=== PATIENT | male | born 1940 | race Caucasian/White ===

== ENCOUNTER 2017-01-02 17:59 | Observation (INO) | payer MEDICARE, OTHER ==
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
[2017-01-02 19:16] LABS: Hematocrit 37.5 % (42.0-52.0); Hemoglobin 12.6 gm/dL (13.5-18.0); Mean Cell Volume 91.5 fl (78-100); Mean Corpuscular Hemoglobin 30.7 pg (27-31); Mean Corpuscular Hgb Conc 33.6 g/dl (32-36); Mean Platelet Volume 9.3 fl (6.0-9.5); Neutrophil # 5.5 K/mm3 (1.3-6.0); Neutrophil % 71.1 % (42-75.0); Platelet Count 311 K/mm3 (150-450); White Blood Count 7.7 K/mm3 (4.0-10.5)
[2017-01-02 19:30] LABS: Albumin * 2.7 gm/dl (3.4-5.0); Anion Gap 12.7 mmol/L (6.8-13.8); BUN/Creatinine Ratio 22.5 (9.0-21.6); Bilirubin, Total 0.3 mg/dL (0.0-1.1); Ca. Corrected For Albumin 8.9 mg/dL (8.4-10.2); Calcium * 8.2 mg/dL (7.9-10.9); Carbon Dioxide 27.7 mmol/L (24-32.6); Potassium 4.4 mmol/L (3.4-4.6)
[2017-01-02 20:29] LABS: Urine Bilirubin Negative (NEGATIVE); Urine Blood Negative /ul (NEGATIVE); Urine Ketone Negative (NEGATIVE); Urine Nitrite Negative (NEGATIVE); Urine Protein Negative (NEGATIVE); Urine Urobilinogen Normal (NORMAL)
[2017-01-02 20:41] LABS: Urine Appearance Clear; Urine Bacteria 3+; Urine Color Yellow; Urine RBC None Seen /hpf (0-5); Urine WBC 0-5 /hpf (0-5)
--- NOTE | 2017-01-02 22:34 | HP ---
<Durga Man - Last Filed: 01/03/17 02:24> Chief Complaint - Chief Complaint Date of Service: 01/02/17 Time of Service: 22:14 Chief Complaint: Falls, parkinson History of Present Illness: 76 years old male adm to the hospital from ER, with reports of frequent falls, decreased mental status, non-compliance to medication regimen and requesting placement. Patient was seen briefly in ER before adm to the hospital.Pt is nonverbal and information is obtained from (POA). stated she no longer can care for patient alone at home. He fights and refuses to take his medications, impulsive getting up unassisted and falling. Pt had not been seen in years by PCP who had since retired.He has a non-infected pressure ulcer to the sacrum, is unable to frequently change his position due to strain on her back.This past week he had two falls leaving him with multiple areas of bruising. He has not been eating well and she has to force him to eat. Adm for social issue and possible placement to [facility]. In ER urinalysis negative, CT cervical spine: No acute fracture. multilevel cervical spondylosis. CT head: No acte facial bone fracture. mild soft tissue swellings in the left periorbital region with no retrobulbar hematoma - Patient's Past Medical History Patient History - Medical: Other - Parkinson's disease, possible dementia Patient History - Cardiac/Respiratory: No pertinent hx Patient History - Cancer: No Hx of Cancer Patient History - Surgical Procedures: Noncontributory, Appendectomy Patient History - Other: None - Family History Mother Family History - Medical: History Unknown Family History - Cardiac/Respiratory: History Unknown Family History - Cancer: History Unknown Father Family History - Medical: History Unknown Family History - Cardiac/Respiratory: History Unknown Family History - Cancer: History Unknown - Social History Living Situations: home Abuse History: No History of abuse Psych History: No pertinent hx Smoking Status: Former smoker Alcohol Use: none Drug Use: none - Immunizations Immunizations Up to Date: No Review Of Systems (GEN) - Review of Systems Generalized/Overall Review: Present: Weakness EENTM: Present: No Symptoms Reported Respiratory: Present: No Symptoms Reported Cardiac: Present: No Symptoms Reported Abdominal: Present: No Symptoms Reported Genitourinary: Present: Urgency Musculoskeletal: Present: Other - unsteady gait Neurological: Present: Tremors, Weakness Skin: Present: Bruising - multiple areas of bruising, pressure ulcer to sacrum Endocrine: Present: No Symptoms Reported Allergies/Adverse Reactions: Allergies Allergy/AdvReac Type Severity Reaction Status Date / Time No Known Allergies Allergy Verified 01/02/17 23:28 Home Medications: HOME MEDICATIONS Carbidopa/Levodopa 25/100 [Sinemet 25/100] 1 tab PO QID 01/02/17 [Last Taken Unknown] Exam - Exam Vital Signs: Vital Signs - Last Taken Temp 36.5 C 01/02/17 18:00 Pulse 76 01/02/17 21:35 Resp 18 01/02/17 21:35 BP 127/79 01/02/17 21:35 Pulse Ox 100 01/02/17 21:35 Constitutional: Present: No distress, Elderly, Looks Older than stated age ENT Exam: Present: moist mucous membranes, other - Right eye orbit swelling Eye Exam: bilateral eye: PERRL Neck: Present: full range of motion Back Exam: Present: normal inspection Breasts: Present: Exam deferred Respiratory: Present: chest non-tender, normal breath sounds, no respiratory distress Cardiovascular/Chest: Present: normal peripheral pulses, regular rate, rhythm, no chest tenderness, no edema Peripheral Pulses: dorsalis-pedis (R): 3+, dorsalis-pedis (L): 3+ Abdomen: Present: Normal bowel sounds, soft, nontender, nondistended, no rebound tenderness /Rectal: Present: Exam deferred Extremity: Present: normal range of motion, normal capillary refill Skin Exam: Present: other - areas of multiple bruising Neurologic: Present: abnormal gait, motor weakness, disoriented x 3 Appearance: Present: other - parkinson Eye contact: Present: good eye contact Thoughts: Present: other - flat affect Diagnostic Studies: Laboratory Results WBC 7.7 K/mm3 (4.0-10.5) 01/02/17 19:10 RBC 4.10 M/mm3 (4.7-6.0) L 01/02/17 19:10 Hgb 12.6 gm/dL (13.5-18.0) L 01/02/17 19:10 Hct 37.5 % (42.0-52.0) L 01/02/17 19:10 MCV 91.5 fl (78-100) 01/02/17 19:10 MCH 30.7 pg (27-31) 01/02/17 19:10 MCHC 33.6 g/dl (32-36) 01/02/17 19:10 RDW 14.0 % (11.5-14.0) 01/02/17 19:10 Plt Count 311 K/mm3 (150-450) 01/02/17 19:10 MPV 9.3 fl (6.0-9.5) 01/02/17 19:10 Immature Gran % (Auto) 0.50 % (0.001-0.429) H 01/02/17 19:10 Immature Gran # (Auto) 0.04 K/mm3 (0.000-0.0310) H 01/02/17 19:10 Neutrophils % 71.1 % (42-75.0) 01/02/17 19:10 Lymphocytes % 18.9 % (20-51) L 01/02/17 19:10 Monocytes % 7.7 % (0.0-9) 01/02/17 19:10 Eosinophils % 1.2 % (0.0-3.0) 01/02/17 19:10 Basophils % 0.6 % (0.0-1.0) 01/02/17 19:10 Nucleated RBC % 0.0 k/mm3 (0-1) 01/02/17 19:10 Neutrophils # 5.5 K/mm3 (1.3-6.0) 01/02/17 19:10 Lymphocytes # 1.5 k/mm3 (1.5-3.5) 01/02/17 19:10 Monocytes # 0.6 k/mm3 (0.0-1.0) 01/02/17 19:10 Eosinophils # 0.1 k/mm3 (0.0-0.7) 01/02/17 19:10 Absolute Basophils 0.1 k/mm3 (0.0-0.1) 01/02/17 19:10 Sodium 141 mmol/L (132-142) 01/02/17 19:10 Plasma Sodium 141 mmol/L (130-142) 01/02/17 19:10 Potassium 4.4 mmol/L (3.4-4.6) 01/02/17 19:10 Chloride 105 mmol/L (97-106) 01/02/17 19:10 Carbon Dioxide 27.7 mmol/L (24-32.6) 01/02/17 19:10 Anion Gap 12.7 mmol/L (6.8-13.8) 01/02/17 19:10 BUN 16 mg/dL (6-23) 01/02/17 19:10 Creatinine 0.71 mg/dL (0.4-1.4) 01/02/17 19:10 Est GFR (Non-Af Amer) 115 mL/min (60-130) D 01/02/17 19:10 BUN/Creatinine Ratio 22.5 (9.0-21.6) H 01/02/17 19:10 Random Glucose 76 mg/dL (70-110) 01/02/17 19:10 Calcium 8.2 mg/dL (7.9-10.9) 01/02/17 19:10 Calcium Adj for Albumin 8.9 mg/dL (8.4-10.2) 01/02/17 19:10 Magnesium 2.0 mg/dL (1.2-2.8) 01/02/17 19:10 Total Bilirubin 0.3 mg/dL (0.0-1.1) 01/02/17 19:10 AST 9 U/L (0-48) 01/02/17 19:10 ALT 13 U/L (19-67) L 01/02/17 19:10 Alkaline Phosphatase 91 U/L (50-170) 01/02/17 19:10 Total Protein 6.0 gm/dL (6.2-8.2) L 01/02/17 19:10 Albumin 2.7 gm/dl (3.4-5.0) L 01/02/17 19:10 Urine Color Yellow 01/02/17 20:15 Urine Appearance Clear 01/02/17 20:15 Urine pH 6.0 pH (5.0-7.0) 01/02/17 20:15 Ur Specific [place] 1.020 SP.GR. (1.005-1.030) 01/02/17 20:15 Urine Protein Negative mg/dL (NEGATIVE) 01/02/17 20:15 Urine Glucose (UA) Negative mg/dL (NEGATIVE) 01/02/17 20:15 Urine Ketones Negative mg/dL (NEGATIVE) 01/02/17 20:15 Urine Blood Negative /ul (NEGATIVE) 01/02/17 20:15 Urine Nitrate Negative (NEGATIVE) 01/02/17 20:15 Urine Bilirubin Negative mg/dl (NEGATIVE) 01/02/17 20:15 Urine Urobilinogen Normal EU/dl (NORMAL) 01/02/17 20:15 Ur Leukocyte Esterase Negative /ul (NEGATIVE) 01/02/17 20:15 Urine RBC None seen /hpf (0-5) 01/02/17 20:15 Urine WBC 0-5 /hpf (0-5) 01/02/17 20:15 Ur Epithelial Cells None seen /hpf (0-5) 01/02/17 20:15 Urine Bacteria 3+ (NONE) H 01/02/17 20:15 Urine Culture Comments Culture to follow 01/02/17 20:15 CT cervical spine: No acute fracture. multilevel cervical spondylosis Ct head: No acte facial bone fracture. mild soft tissue swellings in the left periorbital region with no retrobulbar hematoma Assessment/Plan - Narrative Narrative: Parkinson disease pt is more combative and confused while at home per , he refuses to take his medications and haven't been seen by a PCP in years. pt is more confused likely due to missed dose of medications CT head: No acute facial bone fracture. mild soft tissue swellings in the left periorbital region with no retrobulbar hematoma Urinalysis (-) Resume home dose of medications Ativan x1 now Safety measures while hospitalized support services manager for placement and out-pt follow up with provider Decubitus ulcer at sacrum wound care May have Story cath while wounds is open Non-infecting, no drainage healthy granulating tissue. Falls- unsteady gait in presence of parkinson disease CT cervical spine: No acute fracture. multilevel cervical spondylosis CT head: No acute facial bone fracture. mild soft tissue swellings in the left periorbital region with no retrobulbar hematoma Code status : DNR DVT ppx: Ambulate/ SCD GI ppx: protonix - Assessment/Plan (1) Frequent falls Problem: Chronic (2) Parkinson disease Problem: Chronic <Dk Almeida - Last Filed: 01/03/17 10:13> History of Present Illness: The is able to feed her . The issue is, she is unable to continue being his laborer [employer] child care provider, so she brought him here. I directly supervised all of our nurse practitioner hospitalist care for this person. Immunizations: IMMUNIZATION HX Immunizations Up to Date No Exam - Exam Vital Signs: Vital Signs - Last Taken Temp 35.8 C L 01/03/17 06:20 Pulse 64 01/03/17 06:20 Resp 16 01/03/17 06:20 BP 139/71 01/03/17 06:20 Pulse Ox 97 01/03/17 06:20 Diagnostic Studies: Laboratory Results WBC 7.7 K/mm3 (4.0-10.5) 01/02/17 19:10 RBC 4.10 M/mm3 (4.7-6.0) L 01/02/17 19:10 Hgb 12.6 gm/dL (13.5-18.0) L 01/02/17 19:10 Hct 37.5 % (42.0-52.0) L 01/02/17 19:10 MCV 91.5 fl (78-100) 01/02/17 19:10 MCH 30.7 pg (27-31) 01/02/17 19:10 MCHC 33.6 g/dl (32-36) 01/02/17 19:10 RDW 14.0 % (11.5-14.0) 01/02/17 19:10 Plt Count 311 K/mm3 (150-450) 01/02/17 19:10 MPV 9.3 fl (6.0-9.5) 01/02/17 19:10 Immature Gran % (Auto) 0.50 % (0.001-0.429) H 01/02/17 19:10 Immature Gran # (Auto) 0.04 K/mm3 (0.000-0.0310) H 01/02/17 19:10 Neutrophils % 71.1 % (42-75.0) 01/02/17 19:10 Lymphocytes % 18.9 % (20-51) L 01/02/17 19:10 Monocytes % 7.7 % (0.0-9) 01/02/17 19:10 Eosinophils % 1.2 % (0.0-3.0) 01/02/17 19:10 Basophils % 0.6 % (0.0-1.0) 01/02/17 19:10 Nucleated RBC % 0.0 k/mm3 (0-1) 01/02/17 19:10 Neutrophils # 5.5 K/mm3 (1.3-6.0) 01/02/17 19:10 Lymphocytes # 1.5 k/mm3 (1.5-3.5) 01/02/17 19:10 Monocytes # 0.6 k/mm3 (0.0-1.0) 01/02/17 19:10 Eosinophils # 0.1 k/mm3 (0.0-0.7) 01/02/17 19:10 Absolute Basophils 0.1 k/mm3 (0.0-0.1) 01/02/17 19:10 Sodium 141 mmol/L (132-142) 01/02/17 19:10 Plasma Sodium 141 mmol/L (130-142) 01/02/17 19:10 Potassium 4.4 mmol/L (3.4-4.6) 01/02/17 19:10 Chloride 105 mmol/L (97-106) 01/02/17 19:10 Carbon Dioxide 27.7 mmol/L (24-32.6) 01/02/17 19:10 Anion Gap 12.7 mmol/L (6.8-13.8) 01/02/17 19:10 BUN 16 mg/dL (6-23) 01/02/17 19:10 Creatinine 0.71 mg/dL (0.4-1.4) 01/02/17 19:10 Est GFR (Non-Af Amer) 115 mL/min (60-130) D 01/02/17 19:10 BUN/Creatinine Ratio 22.5 (9.0-21.6) H 01/02/17 19:10 Random Glucose 76 mg/dL (70-110) 01/02/17 19:10 Calcium 8.2 mg/dL (7.9-10.9) 01/02/17 19:10 Calcium Adj for Albumin 8.9 mg/dL (8.4-10.2) 01/02/17 19:10 Magnesium 2.0 mg/dL (1.2-2.8) 01/02/17 19:10 Total Bilirubin 0.3 mg/dL (0.0-1.1) 01/02/17 19:10 AST 9 U/L (0-48) 01/02/17 19:10 ALT 13 U/L (19-67) L 01/02/17 19:10 Alkaline Phosphatase 91 U/L (50-170) 01/02/17 19:10 Total Protein 6.0 gm/dL (6.2-8.2) L 01/02/17 19:10 Albumin 2.7 gm/dl (3.4-5.0) L 01/02/17 19:10 Urine Color Yellow 01/02/17 20:15 Urine Appearance Clear 01/02/17 20:15 Urine pH 6.0 pH (5.0-7.0) 01/02/17 20:15 Ur Specific [place] 1.020 SP.GR. (1.005-1.030) 01/02/17 20:15 Urine Protein Negative mg/dL (NEGATIVE) 01/02/17 20:15 Urine Glucose (UA) Negative mg/dL (NEGATIVE) 01/02/17 20:15 Urine Ketones Negative mg/dL (NEGATIVE) 01/02/17 20:15 Urine Blood Negative /ul (NEGATIVE) 01/02/17 20:15 Urine Nitrate Negative (NEGATIVE) 01/02/17 20:15 Urine Bilirubin Negative mg/dl (NEGATIVE) 01/02/17 20:15 Urine Urobilinogen Normal EU/dl (NORMAL) 01/02/17 20:15 Ur Leukocyte Esterase Negative /ul (NEGATIVE) 01/02/17 20:15 Urine RBC None seen /hpf (0-5) 01/02/17 20:15 Urine WBC 0-5 /hpf (0-5) 01/02/17 20:15 Ur Epithelial Cells None seen /hpf (0-5) 01/02/17 20:15 Urine Bacteria 3+ (NONE) H 01/02/17 20:15 Urine Culture Comments Culture to follow 01/02/17 20:15
[2017-01-03] MEDS: DOCUSATE SODIUM 150 MG/15 ML BTL PO SCH ×2 (00:24→08:33)
[2017-01-03] MEDS ORDERED: LORazepam 2 MG/ML DISP.SYRIN IV SCH (00:30)
[2017-01-03] MEDS ORDERED: CARBIDOPA/LEVODOPA 25/100 1 TAB TABLET PO SCH (09:00)
--- NOTE | 2017-01-03 10:16 | DS ---
(1) Neurologic ambulation disorder Problem: Acute (2) Frequent falls Problem: Chronic (3) Parkinson disease Problem: Chronic Description of Stay: This person was stable while in the hospital. [facility] care arrangements have been made. Procedures Performed: none Discharge Disposition: Home self care Disposition: Home self-care Condition: Poor Discharge Activity: Activity as tolerated Discharge Diet: General/regular food Problem Oriented Discharge Instructions to Patient/Family: Parkinson Disease, [id number] Additional Patient Instructions (free text): TCM at discharge please, if applicable. Call Yi @ ext:[phone] Complete Home Medications List: Complete Home Medication List: Carbidopa/Levodopa 25/100 [Sinemet 25/100] 1 tab PO QID 01/02/17 Docusate Sodium [Colace Liquid] 50 mg PO DAILY btl 01/03/17
[2017-01-03 10:22] VITALS: BP 133/71
== END 2017-01-03 12:45 | disposition home health service (06) ==
LOC: ER 17:59 → MS 21:15
PROVIDERS: ADMIT Allergy & Immunology; ATTEND Allergy & Immunology
PROC: 0T9B70Z Drainage of Bladder with Drainage Device, Via Natural or Artificial Opening (ICD-10-PCS; principal; 2017-01-02)
DX: G20 Parkinson's disease (principal); F02.81 Dementia in other diseases classified elsewhere, unspecified severity, with behavioral disturbance; S00.12XA Contusion of left eyelid and periocular area, initial encounter; W01.0XXA Fall on same level from slipping, tripping and stumbling without subsequent striking against object, initial encounter; Z91.81 History of falling; Y92.019 Unspecified place in single-family (private) house as the place of occurrence of the external cause; L89.159 Pressure ulcer of sacral region, unspecified stage; M47.9 Spondylosis, unspecified; Z87.891 Personal history of nicotine dependence
CPT/HCPCS: 36415; 51702; 70450; 70486; 72125; 80053; 81001; 83735; 85025; 87081; 87086; 99284; G0378